=== PATIENT | female | born 1945 | race African-American/Black ===

== ENCOUNTER 2017-07-19 14:02 | Inpatient (IN) ==
[2017-07-19] MEDS ORDERED: ACETAMINOPHEN 325 MG TABLET PO PRN (14:15)
[2017-07-19] MEDS ORDERED: ONDANSETRON 4 MG/2 ML VIAL IV PRN (14:15)
[2017-07-19 15:50] LABS: Basophils % 0.2 % (0.0-0.8); Eosinophils # 0.2 10*3/uL (0.0-0.87); Hematocrit 36.5 VOL% (35.7-47.0); Hemoglobin 11.7 GM/DL (12.0-16.0); Immature Granulocytes % 0.2 %; Immature Granulocytes Absolute 0.01 #; Lymphocytes # 1.6 10*3/uL (1.4-4.0); Lymphocytes % 38.5 % (21.3-54.2); Mean Corpuscular HGB Conc 32.1 GM/DL (32-36); Mean Corpuscular Hemoglobin 26 PG (27-34); Mean Corpuscular Volume 81.3 FL (87-102); Mean Platelet Volume 10.8 FL (9.6-12.0); Monocytes # 0.3 10*3/uL (0.11-0.8); Monocytes % 6.9 % (1.7-12.7); Neutrophils % 50.2 % (38.7-73.9); Platelet Count 195 T/CUMM (130-400); Red Blood Count 4.49 MC/CUMM (3.8-5.5); Red Cell Distribution Width 15.4 % (9.3-17.3)
[2017-07-19 15:59] LABS: PT Patient Result 10.5 SECS
[2017-07-19 16:30] LABS: Folate 16.3 NG/ML (5.4-24.0)
[2017-07-19 16:31] LABS: Albumin 3.4 G/DL (3.4-5.0); Bilirubin,Total 0.4 MG/DL (0.2-1.0); Calcium 8.9 MG/DL (8.5-10.1); Osmolality,Calculated 286.1 MOS/KG (273-304); Total Protein 6.8 G/DL (6.4-8.3)
[2017-07-19] MEDS: CLOPIDOGREL 75 MG TABLET PO SCH (18:39)
[2017-07-19] MEDS: DOCUSATE SODIUM 100 MG CAPSULE PO SCH (21:48)
[2017-07-19] MEDS: ENOXAPARIN 40 MG/0.4 ML SYRINGE SUBCUT SCH (21:48)
[2017-07-19] MEDS: SODIUM CHLORIDE 0.45% 1,000 ML IV SCH (23:19)
[2017-07-20 05:48] LABS: Risk Ratio 3.84; VLDL CHOLESTEROL 19.2 MG/DL
[2017-07-20] MEDS ORDERED: CLOPIDOGREL 75 MG TABLET PO SCH (09:00)
[2017-07-20] MEDS: LOSARTAN 50 MG TABLET PO SCH (09:04)
[2017-07-20] MEDS: FUROSEMIDE 20 MG TABLET PO SCH (09:04)
[2017-07-20] MEDS: CLOPIDOGREL 75 MG TABLET PO SCH (09:04)
[2017-07-20] MEDS: DOCUSATE SODIUM 100 MG CAPSULE PO SCH ×2 (09:05→20:21)
[2017-07-20] MEDS: SIMVASTATIN 20 MG TABLET PO SCH (09:05)
[2017-07-20] MEDS: PANTOPRAZOLE 40 MG TABLET PO SCH (09:05)
[2017-07-20] MEDS: SODIUM CHLORIDE 0.45% 1,000 ML IV SCH (11:21)
[2017-07-20] MEDS: ENOXAPARIN 40 MG/0.4 ML SYRINGE SUBCUT SCH (20:21)
[2017-07-21] MEDS: SODIUM CHLORIDE 0.45% 1,000 ML IV SCH (01:58)
[2017-07-21 06:01] LABS: Calcium 8.9 MG/DL (8.5-10.1); Osmolality,Calculated 284.1 MOS/KG (273-304); Potassium 4.3 MMOL/L (3.5-5.1)
[2017-07-21] MEDS: DOCUSATE SODIUM 100 MG CAPSULE PO SCH ×2 (08:59→20:17)
[2017-07-21] MEDS: CLOPIDOGREL 75 MG TABLET PO SCH (08:59)
[2017-07-21] MEDS: PANTOPRAZOLE 40 MG TABLET PO SCH (09:00)
[2017-07-21] MEDS: LOSARTAN 50 MG TABLET PO SCH (09:00)
[2017-07-21] MEDS: SIMVASTATIN 20 MG TABLET PO SCH (09:00)
[2017-07-21] MEDS: FUROSEMIDE 20 MG TABLET PO SCH (09:00)
[2017-07-21] MEDS: ENOXAPARIN 40 MG/0.4 ML SYRINGE SUBCUT SCH (20:18)
[2017-07-22] MEDS: SODIUM CHLORIDE 0.45% 1,000 ML IV SCH ×2 (00:18→17:43)
[2017-07-22] MEDS: DOCUSATE SODIUM 100 MG CAPSULE PO SCH ×2 (08:32→21:22)
[2017-07-22] MEDS: LOSARTAN 50 MG TABLET PO SCH (08:32)
[2017-07-22] MEDS: FUROSEMIDE 20 MG TABLET PO SCH (08:32)
[2017-07-22] MEDS: SIMVASTATIN 20 MG TABLET PO SCH (08:32)
[2017-07-22] MEDS: CLOPIDOGREL 75 MG TABLET PO SCH (08:32)
[2017-07-22] MEDS: PANTOPRAZOLE 40 MG TABLET PO SCH (08:32)
[2017-07-22 09:54] LABS: Apearance,Urine CLEAR (Clear); Bacteria,Urine Occasional /HPF (Few); Bilirubin,Urine Negative (Negative); Blood, Urine Negative (Negative); Glucose,Urine (UA) Negative (Negative); Ketones,Urine Negative (Negative); Mucus,Urine Occasional /LPF (Occasional); Nitrite,Urine Negative (Negative); Protein,Urine Negative; RBC,Urine <1 /HPF (0-4); Squamous Epithelial Cell,Urine Occasional /HPF (0-10); Urine Color Straw (Yellow); Urine Specific Gravity 1.008 (1.001-1.035); Urine Urobilinogen < 2.0 EU/DL (0.2-1.0); WBC,Urine 1 /HPF (0-6)
[2017-07-22] MEDS: ENOXAPARIN 40 MG/0.4 ML SYRINGE SUBCUT SCH (21:22)
[2017-07-23 05:30] LABS: Basophils % 0.3 % (0.0-0.8); Eosinophils # 0.2 10*3/uL (0.0-0.87); Eosinophils % 4.6 % (0.00-10.9); Hematocrit 34.7 VOL% (35.7-47.0); Hemoglobin 10.6 GM/DL (12.0-16.0); Immature Granulocytes % 0.3 %; Immature Granulocytes Absolute 0.01 #; Lymphocytes # 1.9 10*3/uL (1.4-4.0); Mean Corpuscular HGB Conc 30.5 GM/DL (32-36); Mean Corpuscular Hemoglobin 25 PG (27-34); Mean Corpuscular Volume 82.6 FL (87-102); Mean Platelet Volume 11.5 FL (9.6-12.0); Monocytes # 0.3 10*3/uL (0.11-0.8); Monocytes % 9.5 % (1.7-12.7); Neutrophils # 1.1 10*3/uL (1.4-7.4); Neutrophils % 31.3 % (38.7-73.9); Platelet Count 188 T/CUMM (130-400); Red Cell Distribution Width 15.1 % (9.3-17.3); White Blood Count 3.5 T/CUMM (4-12)
[2017-07-23 06:02] LABS: Calcium 8.5 MG/DL (8.5-10.1); Osmolality,Calculated 283.1 MOS/KG (273-304); Potassium 4.1 MMOL/L (3.5-5.1)
[2017-07-23 06:09] LABS: Atypical Lymphocytes Few; Eosinophils 9 % (0-10); Lymphocytes 52 % (20-55); Segmented Neutrophils 32 % (50-85); Total Cells Counted 100
[2017-07-23 06:10] LABS: Hypochromasia 1+; Microcytosis 1+; Ovalocytes Few
[2017-07-23 06:11] LABS: Platelet Estimate Adequate
[2017-07-23] MEDS: LOSARTAN 50 MG TABLET PO SCH (08:07)
[2017-07-23] MEDS: SIMVASTATIN 20 MG TABLET PO SCH (08:08)
[2017-07-23] MEDS: DOCUSATE SODIUM 100 MG CAPSULE PO SCH ×2 (08:08→20:10)
[2017-07-23] MEDS: FUROSEMIDE 20 MG TABLET PO SCH (08:08)
[2017-07-23] MEDS: CLOPIDOGREL 75 MG TABLET PO SCH (08:08)
[2017-07-23] MEDS: PANTOPRAZOLE 40 MG TABLET PO SCH (08:08)
[2017-07-24] MEDS: SIMVASTATIN 20 MG TABLET PO SCH (09:46)
[2017-07-24] MEDS: LOSARTAN 50 MG TABLET PO SCH (09:46)
[2017-07-24] MEDS: DOCUSATE SODIUM 100 MG CAPSULE PO SCH ×2 (09:46→20:49)
[2017-07-24] MEDS: CLOPIDOGREL 75 MG TABLET PO SCH (09:46)
[2017-07-24] MEDS: FUROSEMIDE 20 MG TABLET PO SCH (09:46)
[2017-07-24] MEDS: PANTOPRAZOLE 40 MG TABLET PO SCH (09:46)
[2017-07-25] MEDS: FUROSEMIDE 20 MG TABLET PO SCH (10:11)
[2017-07-25] MEDS: LOSARTAN 50 MG TABLET PO SCH (10:11)
[2017-07-25] MEDS: CLOPIDOGREL 75 MG TABLET PO SCH (10:11)
[2017-07-25] MEDS: SIMVASTATIN 20 MG TABLET PO SCH (10:11)
[2017-07-25] MEDS: DOCUSATE SODIUM 100 MG CAPSULE PO SCH ×2 (10:11→21:01)
[2017-07-25] MEDS: PANTOPRAZOLE 40 MG TABLET PO SCH (10:11)
[2017-07-25] MEDS ORDERED: cloNIDine 0.1 MG TABLET PO PRN (19:32)
[2017-07-25] MEDS ORDERED: TEMAZEPAM 7.5 MG CAPSULE PO SCH (21:00)
[2017-07-26] MEDS ORDERED: TUBERCULIN SKIN TEST 0.1 ML SYRINGE INTRADERM ONE (08:20)
[2017-07-26] MEDS ORDERED: SERTRALINE 50 MG TABLET PO SCH (09:00)
[2017-07-26] MEDS: PANTOPRAZOLE 40 MG TABLET PO SCH (10:05)
[2017-07-26] MEDS: FUROSEMIDE 20 MG TABLET PO SCH (10:05)
[2017-07-26] MEDS: DOCUSATE SODIUM 100 MG CAPSULE PO SCH (10:05)
[2017-07-26] MEDS: LOSARTAN 50 MG TABLET PO SCH (10:05)
[2017-07-26] MEDS: CLOPIDOGREL 75 MG TABLET PO SCH (10:05)
[2017-07-26] MEDS: SIMVASTATIN 20 MG TABLET PO SCH (10:06)
[2017-07-26 12:43] VITALS: BP 148/74
== END 2017-07-26 16:28 | disposition home health service (06) | DRG 65 ==
LOC: INTOOBSV 14:24 → N.4E 14:24
PROVIDERS: ADMIT Family Medicine; ATTEND Family Medicine

== ENCOUNTER 2021-11-23 19:00 | Inpatient (IN) ==
[2021-11-23] MEDS ORDERED: DIAZEPAM 10 MG/2 ML SYRINGE ONE (19:12)
[2021-11-23] MEDS ORDERED: LABETALOL 20 MG/4 ML SYRINGE IV ONE (19:19)
[2021-11-23] MEDS ORDERED: levETIRAcetam 500 MG/5 ML VIAL IV ONE (19:40)
[2021-11-23 19:49] LABS: Bilirubin,Urine Negative (Negative); Blood, Urine Negative (Negative); Glucose,Urine (UA) Negative (Negative); Ketones,Urine Negative (Negative); Nitrite,Urine Negative (Negative); Protein,Urine 100 mg/dL (Negative); Urine Appearance Clear (Clear); Urine Color Yellow (Yellow); Urine Urobilinogen 0.2 eU/dL (<2.0)
[2021-11-23 19:51] LABS: Mucus,Urine Occasional /LPF (Occasional); RBC,Urine 1 /HPF (0-4); Squamous Epithelial Cell,Urine Occasional /HPF (0-10)
[2021-11-23 19:59] LABS: PT Patient Result 10.9 SECS (10.1-12.1)
[2021-11-23 20:07] LABS: Basophils % 0.3 % (0.0-0.8); Eosinophils # 0.1 10*3/uL (0.0-0.87); Eosinophils % 1.3 % (0.00-10.9); Hemoglobin 11.4 GM/DL (12.0-16.0); Immature Granulocytes % 0.5 %; Immature Granulocytes Absolute 0.03 #; Lymphocytes # 1.8 10*3/uL (1.4-4.0); Mean Platelet Volume 12.3 FL (9.6-12.0); Monocytes # 0.7 10*3/uL (0.11-0.8); Monocytes % 10.9 % (1.7-12.7); Platelet Count 178 T/CUMM (130-400); Red Blood Count 4.37 MC/CUMM (3.8-5.5); Red Cell Distribution Width 15.3 % (9.3-17.3); White Blood Count 6.1 T/CUMM (4-12)
[2021-11-23 20:09] LABS: Arterial Base Excess iSTAT -2 MMOL/L (-2.5-2.5); Arterial Bicarbonate iSTAT 24.1 MMOL/L (20-26); Arterial O2 Saturation iSTAT 100 % (95-100); Arterial PCO2 iSTAT 48 MM HG (35-48); Arterial PO2 iSTAT 429 MM HG (80-95); Arterial Total CO2 iSTAT 26 MMO/L (23-27); Arterial pH iSTAT 7.314 (7.35-7.45)
[2021-11-23 20:13] LABS: Alanine Aminotransferase 15 U/L (13-56); Albumin 3.7 G/DL (3.4-5.0); Alkaline Phosphatase 87 U/L (45-117); Aspartate Amino Transferase 13 U/L (0-37); Blood Urea Nitrogen 29 MG/DL (7-18); Calcium 9.5 MG/DL (8.5-10.1); Carbon Dioxide 18 MMOL/L (21-32); Chloride 107 MMOL/L (98-107); Glucose 118 MG/DL (74-106); Osmolality,Calculated 283.5 MOS/KG (273-304); Sodium 139 MMOL/L (136-145); Total Protein 7.3 G/DL (6.4-8.2)
[2021-11-23 20:24] LABS: Barbiturates Screen,Urine Negative (Negative); Benzodiazepines Screen,Urine Negative (Negative); Cannabinoid Screen,Urine Negative (Negative); Opiate Screen,Urine Negative (Negative); Phencyclidine Screen,Urine Negative (Negative)
[2021-11-23] MEDS ORDERED: LACTATED RINGERS 500 ML IV ONE (20:45)
[2021-11-23] MEDS ORDERED: SODIUM BICARBONATE 50 MEQ/50 ML VIAL IV STA (20:46)
[2021-11-23] MEDS ORDERED: DIAZEPAM 10 MG/2 ML SYRINGE IV STA (21:16)
[2021-11-23] MEDS ORDERED: ETOMIDATE 20 MG/10 ML VIAL IV ONE (22:01)
[2021-11-23] MEDS ORDERED: ROCURONIUM 100 MG/10 ML VIAL IV ONE (22:01)
[2021-11-23] MEDS ORDERED: ROCURONIUM 100 MG/10 ML VIAL IV STA (22:06)
[2021-11-23] MEDS ORDERED: ETOMIDATE 20 MG/10 ML VIAL IV STA (22:06)
[2021-11-23 22:26] LABS: Arterial Base Excess iSTAT 3 MMOL/L (-2.5-2.5); Arterial Bicarbonate iSTAT 27.7 MMOL/L (20-26); Arterial O2 Saturation iSTAT 100 % (95-100); Arterial PCO2 iSTAT 41 MM HG (35-48); Arterial PO2 iSTAT 303 MM HG (80-95); Arterial Total CO2 iSTAT 29 MMO/L (23-27); Arterial pH iSTAT 7.437 (7.35-7.45)
[2021-11-23] MEDS ORDERED: LABETALOL 20 MG/4 ML SYRINGE IV STA (23:32)
[2021-11-24] MEDS ORDERED: ALBUTEROL/IPRATROPIUM 3 ML NEB RESP TX PRN (00:26)
[2021-11-24] MEDS ORDERED: ONDANSETRON 4 MG/2 ML VIAL IV PRN (00:26)
[2021-11-24] MEDS ORDERED: LABETALOL 20 MG/4 ML SYRINGE IV PRN (00:26)
[2021-11-24] MEDS ORDERED: ALBUTEROL 2.5 MG/3 ML NEB RESP TX PRN (00:26)
[2021-11-24] MEDS ORDERED: MIDAZOLAM 100 MG in SODIUM CHLORIDE 0.9% 80 ML IV PRN (00:31)
[2021-11-24] MEDS ORDERED: DIAZEPAM 10 MG/2 ML SYRINGE IV PRN (00:42)
[2021-11-24] MEDS ORDERED: DIAZEPAM 10 MG/2 ML SYRINGE IV ONE (01:00)
[2021-11-24] MEDS: PANTOPRAZOLE 40 MG VIAL IV SCH (01:43)
[2021-11-24] MEDS: SODIUM CHLORIDE 0.9% 1,000 ML IV SCH ×3 (01:43→17:20)
[2021-11-24] MEDS: HEPARIN 5,000 UNIT/1 ML VIAL SUBCUT SCH ×3 (01:49→17:20)
[2021-11-24 03:56] LABS: Basophils % 0.2 % (0.0-0.8); Eosinophils % 0.4 % (0.00-10.9); Hematocrit 34.3 VOL% (35.7-47.0); Hemoglobin 10.7 GM/DL (12.0-16.0); Immature Granulocytes % 0.4 %; Immature Granulocytes Absolute 0.02 #; Lymphocytes # 0.8 10*3/uL (1.4-4.0); Lymphocytes % 14.1 % (21.3-54.2); Mean Corpuscular HGB Conc 31.2 GM/DL (32-36); Mean Corpuscular Volume 84.9 FL (87-102); Mean Platelet Volume 10.5 FL (9.6-12.0); Monocytes # 0.5 10*3/uL (0.11-0.8); Monocytes % 9.5 % (1.7-12.7); Neutrophils % 75.4 % (38.7-73.9); Platelet Count 145 T/CUMM (130-400); Red Blood Count 4.04 MC/CUMM (3.8-5.5); Red Cell Distribution Width 15.3 % (9.3-17.3); White Blood Count 5.5 T/CUMM (4-12)
[2021-11-24 04:14] LABS: Ammonia < 10 UMOL/L (11-32)
[2021-11-24 04:18] LABS: Lactic Acid 1.5 MMOL/L (0.4-2.0)
[2021-11-24 04:24] LABS: Calcium 9.3 MG/DL (8.5-10.1); Osmolality,Calculated 286.1 MOS/KG (273-304); Potassium 4.5 MMOL/L (3.5-5.1); Risk Ratio 2.34; Thyroid Stimulating Hormone 1.09 uIU/ml (0.358-3.74); VLDL Cholesterol 20.8 MG/DL
[2021-11-24 04:26] LABS: Arterial Base Excess iSTAT 3 MMOL/L (-2.5-2.5); Arterial Bicarbonate iSTAT 27.2 MMOL/L (20-26); Arterial O2 Saturation iSTAT 100 % (95-100); Arterial PCO2 iSTAT 40 MM HG (35-48); Arterial PO2 iSTAT 182 MM HG (80-95); Arterial Total CO2 iSTAT 28 MMO/L (23-27)
[2021-11-24] MEDS: ASPIRIN 325 MG TABLET PO SCH (09:05)
[2021-11-24] MEDS: SERTRALINE 50 MG TABLET PO SCH (09:05)
[2021-11-24] MEDS: CLOPIDOGREL 75 MG TABLET PO SCH (13:15)
[2021-11-24] MEDS ORDERED: ALUMINUM/MAGNES/SIMETH MAX STR 30 ML UDCUP PO PRN (18:05)
[2021-11-24] MEDS: ATORVASTATIN 40 MG TABLET PO SCH (20:23)
[2021-11-25] MEDS: PANTOPRAZOLE 40 MG VIAL IV SCH (00:01)
[2021-11-25] MEDS: HEPARIN 5,000 UNIT/1 ML VIAL SUBCUT SCH (00:01)
[2021-11-25] MEDS: SODIUM CHLORIDE 0.9% 1,000 ML IV SCH (01:54)
[2021-11-25 04:45] LABS: Arterial Base Excess iSTAT 2 MMOL/L (-2.5-2.5); Arterial Bicarbonate iSTAT 27.5 MMOL/L (20-26); Arterial O2 Saturation iSTAT 98 % (95-100); Arterial PCO2 iSTAT 47 MM HG (35-48); Arterial PO2 iSTAT 106 MM HG (80-95); Arterial Total CO2 iSTAT 29 MMO/L (23-27); Arterial pH iSTAT 7.376 (7.35-7.45)
[2021-11-25 06:09] LABS: Basophils % 0.5 % (0.0-0.8); Eosinophils # 0.1 10*3/uL (0.0-0.87); Eosinophils % 2.1 % (0.00-10.9); Hematocrit 38.8 VOL% (35.7-47.0); Hemoglobin 11.7 GM/DL (12.0-16.0); Immature Granulocytes % 0.3 %; Immature Granulocytes Absolute 0.02 #; Lymphocytes # 0.8 10*3/uL (1.4-4.0); Lymphocytes % 14.1 % (21.3-54.2); Mean Corpuscular HGB Conc 30.2 GM/DL (32-36); Mean Corpuscular Volume 86.6 FL (87-102); Mean Platelet Volume 11.5 FL (9.6-12.0); Monocytes # 0.8 10*3/uL (0.11-0.8); Monocytes % 13.7 % (1.7-12.7); Neutrophils % 69.3 % (38.7-73.9); Platelet Count 104 T/CUMM (130-400); Red Blood Count 4.48 MC/CUMM (3.8-5.5); Red Cell Distribution Width 15.5 % (9.3-17.3); White Blood Count 5.8 T/CUMM (4-12)
[2021-11-25 06:26] LABS: Albumin 2.8 G/DL (3.4-5.0); Bilirubin,Total 0.7 MG/DL (0.20-1.00); Osmolality,Calculated 280.3 MOS/KG (273-304); Total Protein 5.9 G/DL (6.4-8.2)
[2021-11-25] MEDS: DEXTROSE 5% NACL 0.45% 1,000 ML IV SCH (08:10)
[2021-11-25] MEDS: CLOPIDOGREL 75 MG TABLET PO SCH (09:23)
[2021-11-25] MEDS: ASPIRIN 325 MG TABLET PO SCH (09:23)
[2021-11-25] MEDS: SERTRALINE 50 MG TABLET PO SCH (09:23)
[2021-11-25] MEDS: ATORVASTATIN 40 MG TABLET PO SCH (21:55)
[2021-11-26] MEDS: DEXTROSE 5% NACL 0.45% 1,000 ML IV SCH ×3 (00:46→23:21)
[2021-11-26] MEDS: PANTOPRAZOLE 40 MG VIAL IV SCH (02:02)
[2021-11-26 06:25] LABS: Basophils % 0.3 % (0.0-0.8); Eosinophils # 0.2 10*3/uL (0.0-0.87); Eosinophils % 3.3 % (0.00-10.9); Hemoglobin 10.6 GM/DL (12.0-16.0); Immature Granulocytes % 0.3 %; Immature Granulocytes Absolute 0.02 #; Lymphocytes # 0.8 10*3/uL (1.4-4.0); Lymphocytes % 13.1 % (21.3-54.2); Mean Corpuscular HGB Conc 31.2 GM/DL (32-36); Mean Corpuscular Volume 84.4 FL (87-102); Mean Platelet Volume 11.2 FL (9.6-12.0); Monocytes # 0.6 10*3/uL (0.11-0.8); Monocytes % 10.3 % (1.7-12.7); Neutrophils % 72.7 % (38.7-73.9); Platelet Count 150 T/CUMM (130-400); Red Blood Count 4.03 MC/CUMM (3.8-5.5); Red Cell Distribution Width 15.1 % (9.3-17.3); White Blood Count 5.7 T/CUMM (4-12)
[2021-11-26 06:46] LABS: Albumin 2.6 G/DL (3.4-5.0); Bilirubin,Total 0.6 MG/DL (0.20-1.00); Calcium 8.8 MG/DL (8.5-10.1); Potassium 3.8 MMOL/L (3.5-5.1)
[2021-11-26] MEDS: SERTRALINE 50 MG TABLET PO SCH (08:50)
[2021-11-26] MEDS: CLOPIDOGREL 75 MG TABLET PO SCH (08:50)
[2021-11-26] MEDS: ASPIRIN 325 MG TABLET PO SCH (09:00)
[2021-11-26] MEDS: ENOXAPARIN 40 MG/0.4 ML SYRINGE SUBCUT SCH (12:15)
[2021-11-26] MEDS: ATORVASTATIN 40 MG TABLET PO SCH (20:51)
[2021-11-27] MEDS: PANTOPRAZOLE 40 MG VIAL IV SCH (06:18)
[2021-11-27 06:45] LABS: Basophils % 0.2 % (0.0-0.8); Eosinophils # 0.2 10*3/uL (0.0-0.87); Eosinophils % 3.1 % (0.00-10.9); Hematocrit 33.1 VOL% (35.7-47.0); Hemoglobin 10.1 GM/DL (12.0-16.0); Immature Granulocytes % 0.6 %; Immature Granulocytes Absolute 0.04 #; Lymphocytes # 0.8 10*3/uL (1.4-4.0); Lymphocytes % 12.8 % (21.3-54.2); Mean Corpuscular HGB Conc 30.5 GM/DL (32-36); Mean Corpuscular Volume 85.8 FL (87-102); Mean Platelet Volume 12.3 FL (9.6-12.0); Monocytes # 0.8 10*3/uL (0.11-0.8); Monocytes % 11.6 % (1.7-12.7); Neutrophils % 71.7 % (38.7-73.9); Platelet Count 135 T/CUMM (130-400); Red Blood Count 3.86 MC/CUMM (3.8-5.5); Red Cell Distribution Width 14.9 % (9.3-17.3); White Blood Count 6.5 T/CUMM (4-12)
[2021-11-27 06:59] LABS: Albumin 2.4 G/DL (3.4-5.0); Bilirubin,Total 0.5 MG/DL (0.20-1.00); Calcium 8.6 MG/DL (8.5-10.1); Osmolality,Calculated 275.8 MOS/KG (273-304); Potassium 3.9 MMOL/L (3.5-5.1); Total Protein 5.6 G/DL (6.4-8.2)
[2021-11-27 07:10] LABS: Platelet Estimate Normal
[2021-11-27] MEDS: SERTRALINE 50 MG TABLET PO SCH (08:40)
[2021-11-27] MEDS: CLOPIDOGREL 75 MG TABLET PO SCH (08:40)
[2021-11-27] MEDS: ASPIRIN 325 MG TABLET PO SCH (08:40)
[2021-11-27] MEDS: ENOXAPARIN 40 MG/0.4 ML SYRINGE SUBCUT SCH (10:28)
[2021-11-27] MEDS: DEXTROSE 5% NACL 0.45% 1,000 ML IV SCH (13:31)
[2021-11-27] MEDS: ATORVASTATIN 40 MG TABLET PO SCH (20:44)
[2021-11-28] MEDS: PANTOPRAZOLE 40 MG VIAL IV SCH ×2 (00:22→23:51)
[2021-11-28] MEDS: DEXTROSE 5% NACL 0.45% 1,000 ML IV SCH ×2 (01:50→15:00)
[2021-11-28 05:42] LABS: Basophils % 0.2 % (0.0-0.8); Eosinophils # 0.2 10*3/uL (0.0-0.87); Eosinophils % 3.2 % (0.00-10.9); Hematocrit 33.2 VOL% (35.7-47.0); Immature Granulocytes % 0.4 %; Immature Granulocytes Absolute 0.02 #; Lymphocytes # 0.9 10*3/uL (1.4-4.0); Lymphocytes % 15.8 % (21.3-54.2); Mean Corpuscular HGB Conc 30.1 GM/DL (32-36); Mean Corpuscular Volume 85.3 FL (87-102); Mean Platelet Volume 12.2 FL (9.6-12.0); Monocytes # 0.6 10*3/uL (0.11-0.8); Monocytes % 10.2 % (1.7-12.7); Neutrophils % 70.2 % (38.7-73.9); Platelet Count 156 T/CUMM (130-400); Red Blood Count 3.89 MC/CUMM (3.8-5.5); Red Cell Distribution Width 14.8 % (9.3-17.3); White Blood Count 5.4 T/CUMM (4-12)
[2021-11-28 06:02] LABS: Calcium 8.7 MG/DL (8.5-10.1); Osmolality,Calculated 274.7 MOS/KG (273-304)
[2021-11-28] MEDS: ENOXAPARIN 40 MG/0.4 ML SYRINGE SUBCUT SCH (10:00)
[2021-11-28] MEDS: ASPIRIN 325 MG TABLET PO SCH (12:55)
[2021-11-28] MEDS: SERTRALINE 50 MG TABLET PO SCH (12:56)
[2021-11-28] MEDS: CLOPIDOGREL 75 MG TABLET PO SCH (12:56)
[2021-11-28] MEDS: ATORVASTATIN 40 MG TABLET PO SCH (20:37)
[2021-11-29] MEDS: DEXTROSE 5% NACL 0.45% 1,000 ML IV SCH ×3 (04:00→15:59)
[2021-11-29 06:08] LABS: Basophils % 0.3 % (0.0-0.8); Eosinophils # 0.2 10*3/uL (0.0-0.87); Eosinophils % 5.2 % (0.00-10.9); Hematocrit 34.7 VOL% (35.7-47.0); Hemoglobin 10.5 GM/DL (12.0-16.0); Immature Granulocytes % 0.6 %; Immature Granulocytes Absolute 0.02 #; Lymphocytes # 0.9 10*3/uL (1.4-4.0); Lymphocytes % 25.4 % (21.3-54.2); Mean Corpuscular HGB Conc 30.3 GM/DL (32-36); Mean Corpuscular Volume 86.1 FL (87-102); Monocytes # 0.5 10*3/uL (0.11-0.8); Monocytes % 13.9 % (1.7-12.7); Neutrophils % 54.6 % (38.7-73.9); Platelet Count 141 T/CUMM (130-400); Red Blood Count 4.03 MC/CUMM (3.8-5.5); Red Cell Distribution Width 14.6 % (9.3-17.3); White Blood Count 3.5 T/CUMM (4-12)
[2021-11-29 06:26] LABS: Calcium 8.8 MG/DL (8.5-10.1); Osmolality,Calculated 275.5 MOS/KG (273-304); Potassium 3.9 MMOL/L (3.5-5.1)
[2021-11-29] MEDS: ASPIRIN 325 MG TABLET PO SCH (10:37)
[2021-11-29] MEDS: CLOPIDOGREL 75 MG TABLET PO SCH (10:37)
[2021-11-29] MEDS: SERTRALINE 50 MG TABLET PO SCH (10:37)
[2021-11-29] MEDS: ATORVASTATIN 40 MG TABLET PO SCH (20:36)
[2021-11-30] MEDS: PANTOPRAZOLE 40 MG VIAL IV SCH ×2 (00:20→23:40)
[2021-11-30] MEDS: DEXTROSE 5% NACL 0.45% 1,000 ML IV SCH ×2 (05:46→20:45)
[2021-11-30 06:47] LABS: Basophils % 0.5 % (0.0-0.8); Eosinophils # 0.2 10*3/uL (0.0-0.87); Eosinophils % 3.4 % (0.00-10.9); Hematocrit 37.8 VOL% (35.7-47.0); Hemoglobin 11.8 GM/DL (12.0-16.0); Immature Granulocytes % 0.7 %; Immature Granulocytes Absolute 0.03 #; Lymphocytes # 1.1 10*3/uL (1.4-4.0); Lymphocytes % 24.6 % (21.3-54.2); Mean Corpuscular HGB Conc 31.2 GM/DL (32-36); Mean Corpuscular Volume 84.2 FL (87-102); Mean Platelet Volume 12.5 FL (9.6-12.0); Monocytes # 0.7 10*3/uL (0.11-0.8); Neutrophils % 54.8 % (38.7-73.9); Platelet Count 137 T/CUMM (130-400); Red Blood Count 4.49 MC/CUMM (3.8-5.5); Red Cell Distribution Width 14.6 % (9.3-17.3); White Blood Count 4.4 T/CUMM (4-12)
[2021-11-30 06:52] LABS: Hypochromia Slight; Lymphocytes 33 % (20-55); Microcytosis Slight; Platelet Estimate Normal; Total Cells Counted 100
[2021-11-30 06:57] LABS: Calcium 8.7 MG/DL (8.5-10.1); Osmolality,Calculated 272.8 MOS/KG (273-304); Potassium 4.1 MMOL/L (3.5-5.1)
[2021-11-30] MEDS: SERTRALINE 50 MG TABLET PO SCH (08:52)
[2021-11-30] MEDS: ASPIRIN 325 MG TABLET PO SCH (08:52)
[2021-11-30] MEDS: CLOPIDOGREL 75 MG TABLET PO SCH (08:52)
[2021-11-30] MEDS: ATORVASTATIN 40 MG TABLET PO SCH (20:46)
[2021-12-01] MEDS: SERTRALINE 50 MG TABLET PO SCH (08:36)
[2021-12-01] MEDS: ASPIRIN 325 MG TABLET PO SCH (08:36)
[2021-12-01] MEDS: CLOPIDOGREL 75 MG TABLET PO SCH (08:36)
[2021-12-01] MEDS: DEXTROSE 5% NACL 0.45% 1,000 ML IV SCH (08:58)
[2021-12-01 13:00] VITALS: BP 115/54
== END 2021-12-01 15:46 | disposition swing bed (61) | DRG 57 ==
LOC: EDBD → EDUNIT# → N.ED 19:00 → N.ICU 23:44 → SUATTDRO 23:44 → N.ICU 11-24 00:25 → N.5E 11-30 15:16
PROVIDERS: ADMIT Family Medicine; ATTEND Family Medicine

== ENCOUNTER 2021-12-23 16:52 | Inpatient (IN) ==
[2021-12-23 17:50] LABS: Hematocrit 24.4 VOL% (35.7-47.0); Hemoglobin 7.8 GM/DL (12.0-16.0); Immature Granulocytes % 1.3 %; Immature Granulocytes Absolute 0.14 #; Lymphocytes # 0.5 10*3/uL (1.4-4.0); Mean Corpuscular Volume 81.6 FL (87-102); Mean Platelet Volume 12.2 FL (9.6-12.0); Monocytes % 8.5 % (1.7-12.7); Neutrophils % 86.2 % (38.7-73.9); Platelet Count 121 T/CUMM (130-400); Red Blood Count 2.99 MC/CUMM (3.8-5.5); Red Cell Distribution Width 14.4 % (9.3-17.3); White Blood Count 11.2 T/CUMM (4-12)
[2021-12-23 18:12] LABS: Bilirubin,Total 0.5 MG/DL (0.20-1.00); Calcium 8.3 MG/DL (8.5-10.1); Osmolality,Calculated 271.4 MOS/KG (273-304)
[2021-12-23 18:26] LABS: Glucose,Urine (UA) Negative (Negative); Ketones,Urine Negative (Negative); Nitrite,Urine Negative (Negative); Urine Appearance Clear (Clear); Urine Color Yellow (Yellow); Urine pH 5.5 (4.5-8.0)
[2021-12-23 18:27] LABS: Bilirubin,Urine Negative (Negative); Blood, Urine Trace mg/dL (Negative); Protein,Urine 100 mg/dL (Negative); Urine Specific Gravity 1.025 (1.001-1.035); Urine Urobilinogen 0.2 eU/dL (<2.0)
[2021-12-23 18:29] LABS: Amorphous Crystals,Urine Occasional /HPF (Few); Mucus,Urine Occasional /LPF (Occasional); Squamous Epithelial Cell,Urine Occasional /HPF (0-10)
[2021-12-23 19:39] LABS: Lymphocytes 4 % (20-55); Schistocytes Few; Total Cells Counted 100
[2021-12-23 19:40] LABS: Hypochromia Slight; Ovalocytes Few; Platelet Estimate Normal
[2021-12-23] MEDS ORDERED: PIPERACILLIN/TAZOBACTAM 3,375 MG in SODIUM CHLORIDE 0.9% 100 ML IV STA (19:54)
[2021-12-23] MEDS ORDERED: SODIUM CHLORIDE 0.9% 1,000 ML IV PRN (19:55)
[2021-12-23] MEDS ORDERED: ONDANSETRON 4 MG/2 ML VIAL IV PRN (19:55)
[2021-12-23] MEDS: LACTATED RINGERS 1,000 ML IV SCH (21:16)
[2021-12-23] MEDS: DOCUSATE SODIUM 100 MG CAPSULE PO SCH (23:54)
[2021-12-23] MEDS ORDERED: INFLUENZA VIRUS VACCINE 0.5 ML SYRINGE IM ONE (23:59)
[2021-12-24 00:15] LABS: Basophils % 0.2 % (0.0-0.8); Hematocrit 24.2 VOL% (35.7-47.0); Hemoglobin 7.7 GM/DL (12.0-16.0); Immature Granulocytes % 0.6 %; Immature Granulocytes Absolute 0.06 #; Lymphocytes # 0.6 10*3/uL (1.4-4.0); Lymphocytes % 5.2 % (21.3-54.2); Mean Corpuscular HGB Conc 31.8 GM/DL (32-36); Mean Corpuscular Volume 82.6 FL (87-102); Mean Platelet Volume 12.1 FL (9.6-12.0); Monocytes # 0.9 10*3/uL (0.11-0.8); Monocytes % 8.1 % (1.7-12.7); Neutrophils % 85.9 % (38.7-73.9); Platelet Count 135 T/CUMM (130-400); Red Blood Count 2.93 MC/CUMM (3.8-5.5); Red Cell Distribution Width 14.6 % (9.3-17.3); White Blood Count 10.9 T/CUMM (4-12)
[2021-12-24 00:25] LABS: Bilirubin,Total 0.5 MG/DL (0.20-1.00); Calcium 8.5 MG/DL (8.5-10.1); Osmolality,Calculated 275.1 MOS/KG (273-304); Potassium 3.9 MMOL/L (3.5-5.1); Total Protein 5.7 G/DL (6.4-8.2)
[2021-12-24 01:00] LABS: Lymphocytes 9 % (20-55); Myelocytes 1 %; Platelet Estimate Normal; Total Cells Counted 100
[2021-12-24] MEDS: PIPERACILLIN/TAZOBACTAM 3,375 MG in SODIUM CHLORIDE 0.9% 100 ML IV SCH ×3 (03:24→20:16)
[2021-12-24] MEDS: LACTATED RINGERS 1,000 ML IV SCH ×2 (05:08→18:51)
[2021-12-24] MEDS ORDERED: ALBUTEROL 2.5 MG/3 ML NEB RESP TX SCH (07:00)
[2021-12-24] MEDS ORDERED: MAGNESIUM HYDROXIDE SUSP 30 ML UDCUP PO PRN (07:00)
[2021-12-24] MEDS ORDERED: ACETAMINOPHEN 650 MG SUPP RECTAL PRN (07:00)
[2021-12-24] MEDS ORDERED: ACETAMINOPHEN 325 MG TABLET PO PRN (07:00)
[2021-12-24] MEDS ORDERED: BISACODYL 10 MG SUPP RECTAL PRN (07:00)
[2021-12-24] MEDS ORDERED: BISACODYL 5 MG TABLET PO PRN (07:00)
[2021-12-24] MEDS ORDERED: ZALEPLON 5 MG CAPSULE PO PRN (07:00)
[2021-12-24] MEDS ORDERED: GLUCAGON HCL 1 MG SUBCUT PRN (07:00)
[2021-12-24] MEDS ORDERED: ALUMINUM/MAGNES/SIMETH MAX STR 30 ML UDCUP PO PRN (07:00)
[2021-12-24] MEDS ORDERED: guaiFENesin 200 MG/10 ML UDCUP PO PRN (07:00)
[2021-12-24] MEDS ORDERED: GLUCAGON 1 MG VIAL IM PRN (07:12)
[2021-12-24] MEDS: ALBUTEROL/IPRATROPIUM 3 ML NEB RESP TX SCH ×3 (07:28→21:25)
[2021-12-24] MEDS ORDERED: ALBUTEROL 2.5 MG/3 ML NEB RESP TX PRN (07:32)
[2021-12-24] MEDS: PANTOPRAZOLE 40 MG TABLET PO SCH (10:40)
[2021-12-24] MEDS: SERTRALINE 50 MG TABLET PO SCH (10:41)
[2021-12-24] MEDS: levETIRAcetam 500 MG TABLET PO SCH ×2 (10:41→21:54)
[2021-12-24] MEDS: DOCUSATE SODIUM 100 MG CAPSULE PO SCH ×2 (10:41→21:54)
[2021-12-24] MEDS: CLOPIDOGREL 75 MG TABLET PO SCH (10:41)
[2021-12-24] MEDS: ASPIRIN EC 81 MG TABLET PO SCH (10:41)
[2021-12-24] MEDS: POTASSIUM CHLORIDE 10 MEQ TABLET PO SCH (10:41)
[2021-12-24] MEDS: LOSARTAN 25 MG TABLET PO SCH (21:54)
[2021-12-24] MEDS: ATORVASTATIN 20 MG TABLET PO SCH (21:54)
[2021-12-25] MEDS: LACTATED RINGERS 1,000 ML IV SCH ×3 (02:47→23:12)
[2021-12-25 04:42] LABS: Eosinophils % 0.5 % (0.00-10.9); Hematocrit 23.2 VOL% (35.7-47.0); Hemoglobin 7.4 GM/DL (12.0-16.0); Immature Granulocytes % 0.4 %; Immature Granulocytes Absolute 0.03 #; Lymphocytes # 0.7 10*3/uL (1.4-4.0); Lymphocytes % 8.8 % (21.3-54.2); Mean Corpuscular HGB Conc 31.9 GM/DL (32-36); Mean Corpuscular Volume 81.1 FL (87-102); Mean Platelet Volume 12.3 FL (9.6-12.0); Monocytes # 0.5 10*3/uL (0.11-0.8); Monocytes % 6.2 % (1.7-12.7); Neutrophils % 84.1 % (38.7-73.9); Platelet Count 121 T/CUMM (130-400); Red Blood Count 2.86 MC/CUMM (3.8-5.5); Red Cell Distribution Width 14.7 % (9.3-17.3); White Blood Count 8.2 T/CUMM (4-12)
[2021-12-25 05:02] LABS: Calcium 8.6 MG/DL (8.5-10.1); Osmolality,Calculated 279.7 MOS/KG (273-304); Potassium 3.9 MMOL/L (3.5-5.1)
[2021-12-25] MEDS: PIPERACILLIN/TAZOBACTAM 3,375 MG in SODIUM CHLORIDE 0.9% 100 ML IV SCH ×3 (05:04→20:07)
[2021-12-25 05:22] LABS: Ovalocytes Slight; Platelet Estimate Normal
[2021-12-25] MEDS: ALBUTEROL/IPRATROPIUM 3 ML NEB RESP TX SCH ×3 (07:20→19:58)
[2021-12-25] MEDS: VANCOMYCIN INJ 1,000 MG in SODIUM CHLORIDE 0.9% 250 ML IV SCH ×2 (11:08→23:15)
[2021-12-25] MEDS: POTASSIUM CHLORIDE 10 MEQ TABLET PO SCH (11:09)
[2021-12-25] MEDS: DEXAMETHASONE 4 MG/1 ML VIAL IV SCH ×2 (11:09→20:07)
[2021-12-25] MEDS: PANTOPRAZOLE 40 MG TABLET PO SCH (11:09)
[2021-12-25] MEDS: DOCUSATE SODIUM 100 MG CAPSULE PO SCH ×2 (11:09→20:07)
[2021-12-25] MEDS: SERTRALINE 50 MG TABLET PO SCH (11:09)
[2021-12-25] MEDS: CLOPIDOGREL 75 MG TABLET PO SCH (11:09)
[2021-12-25] MEDS: levETIRAcetam 500 MG TABLET PO SCH ×2 (11:10→20:08)
[2021-12-25] MEDS: ASPIRIN EC 81 MG TABLET PO SCH (11:10)
[2021-12-25] MEDS ORDERED: SODIUM CHLORIDE 0.9% 1,000 ML IV PRN (13:55)
[2021-12-25] MEDS: ACETAMINOPHEN 325 MG TABLET PO PRN (16:32)
[2021-12-25] MEDS: LOSARTAN 25 MG TABLET PO SCH (20:08)
[2021-12-25] MEDS: ATORVASTATIN 20 MG TABLET PO SCH (20:08)
[2021-12-25 22:57] LABS: Hematocrit 25.9 VOL% (35.7-47.0); Hemoglobin 8.1 GM/DL (12.0-16.0)
[2021-12-26] MEDS: PIPERACILLIN/TAZOBACTAM 3,375 MG in SODIUM CHLORIDE 0.9% 100 ML IV SCH ×3 (03:30→22:19)
[2021-12-26 07:00] LABS: Calcium 8.9 MG/DL (8.5-10.1); Osmolality,Calculated 279.7 MOS/KG (273-304); Potassium 4.2 MMOL/L (3.5-5.1)
[2021-12-26] MEDS: ALBUTEROL/IPRATROPIUM 3 ML NEB RESP TX SCH ×3 (07:50→19:30)
[2021-12-26] MEDS: POTASSIUM CHLORIDE 10 MEQ TABLET PO SCH (09:34)
[2021-12-26] MEDS: PANTOPRAZOLE 40 MG TABLET PO SCH (09:34)
[2021-12-26] MEDS: DEXAMETHASONE 4 MG/1 ML VIAL IV SCH ×2 (09:34→21:22)
[2021-12-26] MEDS: CLOPIDOGREL 75 MG TABLET PO SCH (09:34)
[2021-12-26] MEDS: metOLazone 5 MG TABLET PO SCH (09:35)
[2021-12-26] MEDS: SERTRALINE 50 MG TABLET PO SCH (09:35)
[2021-12-26] MEDS: ASPIRIN EC 81 MG TABLET PO SCH (09:35)
[2021-12-26] MEDS: levETIRAcetam 500 MG TABLET PO SCH ×2 (09:35→21:21)
[2021-12-26] MEDS: DOCUSATE SODIUM 100 MG CAPSULE PO SCH ×2 (09:35→21:22)
[2021-12-26] MEDS: FUROSEMIDE 20 MG TABLET PO SCH (09:35)
[2021-12-26] MEDS: LACTATED RINGERS 1,000 ML IV SCH ×2 (09:57→18:00)
[2021-12-26] MEDS: VANCOMYCIN INJ 1,000 MG in SODIUM CHLORIDE 0.9% 250 ML IV SCH ×2 (10:01→21:22)
[2021-12-26] MEDS: LOSARTAN 25 MG TABLET PO SCH (21:21)
[2021-12-26] MEDS: ATORVASTATIN 20 MG TABLET PO SCH (21:22)
[2021-12-26] MEDS: ACETAMINOPHEN 325 MG TABLET PO PRN (23:20)
[2021-12-27] MEDS: LACTATED RINGERS 1,000 ML IV SCH ×2 (05:11→15:10)
[2021-12-27] MEDS: PIPERACILLIN/TAZOBACTAM 3,375 MG in SODIUM CHLORIDE 0.9% 100 ML IV SCH (05:11)
[2021-12-27] MEDS: ALBUTEROL/IPRATROPIUM 3 ML NEB RESP TX SCH ×3 (07:20→20:51)
[2021-12-27] MEDS: PANTOPRAZOLE 40 MG TABLET PO SCH (09:10)
[2021-12-27] MEDS: POTASSIUM CHLORIDE 10 MEQ TABLET PO SCH (09:10)
[2021-12-27] MEDS: ASPIRIN EC 81 MG TABLET PO SCH (09:10)
[2021-12-27] MEDS: levETIRAcetam 500 MG TABLET PO SCH ×2 (09:10→21:03)
[2021-12-27] MEDS: DOCUSATE SODIUM 100 MG CAPSULE PO SCH ×2 (09:10→21:03)
[2021-12-27] MEDS: SERTRALINE 50 MG TABLET PO SCH (09:10)
[2021-12-27] MEDS: DEXAMETHASONE 4 MG/1 ML VIAL IV SCH ×2 (09:12→21:06)
[2021-12-27] MEDS: CLOPIDOGREL 75 MG TABLET PO SCH (09:55)
[2021-12-27] MEDS: OXACILLIN 2,000 MG in SODIUM CHLORIDE 0.9% 100 ML IV SCH ×4 (11:04→23:24)
[2021-12-27] MEDS: ATORVASTATIN 20 MG TABLET PO SCH (21:02)
[2021-12-27] MEDS: LOSARTAN 25 MG TABLET PO SCH (21:03)
[2021-12-28] MEDS: LACTATED RINGERS 1,000 ML IV SCH ×2 (03:04→14:03)
[2021-12-28] MEDS: OXACILLIN 2,000 MG in SODIUM CHLORIDE 0.9% 100 ML IV SCH ×5 (03:05→20:47)
[2021-12-28 05:37] LABS: Basophils % 0.1 % (0.0-0.8); Eosinophils # 0.2 10*3/uL (0.0-0.87); Eosinophils % 1.5 % (0.00-10.9); Hematocrit 30.5 VOL% (35.7-47.0); Hemoglobin 9.4 GM/DL (12.0-16.0); Immature Granulocytes % 1.8 %; Lymphocytes # 1.4 10*3/uL (1.4-4.0); Mean Corpuscular HGB Conc 30.8 GM/DL (32-36); Mean Corpuscular Volume 83.1 FL (87-102); Mean Platelet Volume 11.2 FL (9.6-12.0); Monocytes # 0.8 10*3/uL (0.11-0.8); Monocytes % 7.6 % (1.7-12.7); NRBC # 0.02 10*3/uL; Platelet Count 242 T/CUMM (130-400); Red Blood Count 3.67 MC/CUMM (3.8-5.5); Red Cell Distribution Width 15.1 % (9.3-17.3); White Blood Count 10.9 T/CUMM (4-12)
[2021-12-28 05:58] LABS: Calcium 8.7 MG/DL (8.5-10.1); Osmolality,Calculated 280.5 MOS/KG (273-304); Potassium 3.6 MMOL/L (3.5-5.1)
[2021-12-28] MEDS: ALBUTEROL/IPRATROPIUM 3 ML NEB RESP TX SCH ×2 (07:00→12:40)
[2021-12-28] MEDS: CLOPIDOGREL 75 MG TABLET PO SCH (09:00)
[2021-12-28] MEDS: DOCUSATE SODIUM 100 MG CAPSULE PO SCH ×2 (09:00→20:50)
[2021-12-28] MEDS: PANTOPRAZOLE 40 MG TABLET PO SCH (09:00)
[2021-12-28] MEDS: levETIRAcetam 500 MG TABLET PO SCH ×2 (09:01→20:50)
[2021-12-28] MEDS: ASPIRIN EC 81 MG TABLET PO SCH (09:01)
[2021-12-28] MEDS: FUROSEMIDE 20 MG TABLET PO SCH (09:01)
[2021-12-28] MEDS: DEXAMETHASONE 4 MG/1 ML VIAL IV SCH ×2 (09:01→20:49)
[2021-12-28] MEDS: SERTRALINE 50 MG TABLET PO SCH (09:02)
[2021-12-28] MEDS: POTASSIUM CHLORIDE 10 MEQ TABLET PO SCH (09:08)
[2021-12-28] MEDS: metOLazone 5 MG TABLET PO SCH (09:08)
[2021-12-28] MEDS: ACETAMINOPHEN 325 MG TABLET PO PRN (20:50)
[2021-12-28] MEDS: ATORVASTATIN 20 MG TABLET PO SCH (20:50)
[2021-12-28] MEDS: LOSARTAN 25 MG TABLET PO SCH (20:50)
[2021-12-29] MEDS: LACTATED RINGERS 1,000 ML IV SCH ×3 (02:06→23:45)
[2021-12-29] MEDS: OXACILLIN 2,000 MG in SODIUM CHLORIDE 0.9% 100 ML IV SCH ×6 (02:07→20:05)
[2021-12-29] MEDS: ALBUTEROL/IPRATROPIUM 3 ML NEB RESP TX SCH ×4 (07:29→19:25)
[2021-12-29 09:12] LABS: Basophils % 0.2 % (0.0-0.8); Eosinophils # 0.1 10*3/uL (0.0-0.87); Eosinophils % 0.7 % (0.00-10.9); Hematocrit 31.9 VOL% (35.7-47.0); Immature Granulocytes % 2.6 %; Immature Granulocytes Absolute 0.29 #; Lymphocytes # 1.9 10*3/uL (1.4-4.0); Lymphocytes % 16.9 % (21.3-54.2); Mean Corpuscular HGB Conc 31.3 GM/DL (32-36); Mean Corpuscular Volume 83.7 FL (87-102); Mean Platelet Volume 11.3 FL (9.6-12.0); Monocytes # 0.6 10*3/uL (0.11-0.8); Monocytes % 4.9 % (1.7-12.7); Neutrophils % 74.7 % (38.7-73.9); Platelet Count 306 T/CUMM (130-400); Red Blood Count 3.81 MC/CUMM (3.8-5.5); Red Cell Distribution Width 15.6 % (9.3-17.3); White Blood Count 11.3 T/CUMM (4-12)
[2021-12-29] MEDS: DEXAMETHASONE 4 MG/1 ML VIAL IV SCH ×2 (09:16→20:05)
[2021-12-29] MEDS: POTASSIUM CHLORIDE 10 MEQ TABLET PO SCH (09:18)
[2021-12-29] MEDS: DOCUSATE SODIUM 100 MG CAPSULE PO SCH ×2 (09:18→20:05)
[2021-12-29] MEDS: CLOPIDOGREL 75 MG TABLET PO SCH (09:18)
[2021-12-29] MEDS: SERTRALINE 50 MG TABLET PO SCH (09:18)
[2021-12-29] MEDS: levETIRAcetam 500 MG TABLET PO SCH ×2 (09:18→20:05)
[2021-12-29] MEDS: PANTOPRAZOLE 40 MG TABLET PO SCH (09:18)
[2021-12-29] MEDS: ASPIRIN EC 81 MG TABLET PO SCH (09:18)
[2021-12-29 09:25] LABS: Calcium 8.6 MG/DL (8.5-10.1); Osmolality,Calculated 280.5 MOS/KG (273-304); Potassium 4.5 MMOL/L (3.5-5.1)
[2021-12-29] MEDS: ATORVASTATIN 20 MG TABLET PO SCH (20:05)
[2021-12-29] MEDS: LOSARTAN 25 MG TABLET PO SCH (20:05)
[2021-12-30] MEDS: OXACILLIN 2,000 MG in SODIUM CHLORIDE 0.9% 100 ML IV SCH ×6 (00:25→20:40)
[2021-12-30] MEDS: ALBUTEROL/IPRATROPIUM 3 ML NEB RESP TX SCH ×3 (07:23→21:35)
[2021-12-30] MEDS: DEXAMETHASONE 4 MG/1 ML VIAL IV SCH ×2 (08:12→20:40)
[2021-12-30] MEDS: PANTOPRAZOLE 40 MG TABLET PO SCH (08:13)
[2021-12-30] MEDS: metOLazone 5 MG TABLET PO SCH (08:13)
[2021-12-30] MEDS: ASPIRIN EC 81 MG TABLET PO SCH (08:13)
[2021-12-30] MEDS: POTASSIUM CHLORIDE 10 MEQ TABLET PO SCH (08:13)
[2021-12-30] MEDS: DOCUSATE SODIUM 100 MG CAPSULE PO SCH ×2 (08:13→20:40)
[2021-12-30] MEDS: CLOPIDOGREL 75 MG TABLET PO SCH (08:13)
[2021-12-30] MEDS: FUROSEMIDE 20 MG TABLET PO SCH (08:14)
[2021-12-30] MEDS: SERTRALINE 50 MG TABLET PO SCH (08:14)
[2021-12-30] MEDS: levETIRAcetam 500 MG TABLET PO SCH ×2 (08:14→20:40)
[2021-12-30] MEDS: LOSARTAN 25 MG TABLET PO SCH (20:40)
[2021-12-30] MEDS: ATORVASTATIN 20 MG TABLET PO SCH (20:40)
[2021-12-30] MEDS: LACTATED RINGERS 1,000 ML IV SCH (22:00)
[2021-12-31] MEDS: OXACILLIN 2,000 MG in SODIUM CHLORIDE 0.9% 100 ML IV SCH ×6 (00:45→20:15)
[2021-12-31 05:42] LABS: Basophils % 0.1 % (0.0-0.8); Eosinophils # 0.1 10*3/uL (0.0-0.87); Eosinophils % 0.7 % (0.00-10.9); Hematocrit 30.6 VOL% (35.7-47.0); Hemoglobin 9.4 GM/DL (12.0-16.0); Immature Granulocytes % 4.8 %; Immature Granulocytes Absolute 0.33 #; Lymphocytes # 1.4 10*3/uL (1.4-4.0); Lymphocytes % 20.3 % (21.3-54.2); Mean Corpuscular HGB Conc 30.7 GM/DL (32-36); Mean Corpuscular Volume 84.1 FL (87-102); Mean Platelet Volume 10.6 FL (9.6-12.0); Monocytes # 0.3 10*3/uL (0.11-0.8); Neutrophils % 69.1 % (38.7-73.9); Platelet Count 381 T/CUMM (130-400); Red Blood Count 3.64 MC/CUMM (3.8-5.5); Red Cell Distribution Width 15.9 % (9.3-17.3); White Blood Count 6.9 T/CUMM (4-12)
[2021-12-31 05:58] LABS: Calcium 8.6 MG/DL (8.5-10.1); Osmolality,Calculated 280.5 MOS/KG (273-304); Potassium 4.3 MMOL/L (3.5-5.1)
[2021-12-31] MEDS: ALBUTEROL/IPRATROPIUM 3 ML NEB RESP TX SCH ×3 (07:16→19:50)
[2021-12-31] MEDS: DOCUSATE SODIUM 100 MG CAPSULE PO SCH ×2 (09:33→20:15)
[2021-12-31] MEDS: ASPIRIN EC 81 MG TABLET PO SCH (09:33)
[2021-12-31] MEDS: PANTOPRAZOLE 40 MG TABLET PO SCH (09:33)
[2021-12-31] MEDS: levETIRAcetam 500 MG TABLET PO SCH ×2 (09:33→20:15)
[2021-12-31] MEDS: CLOPIDOGREL 75 MG TABLET PO SCH (09:33)
[2021-12-31] MEDS: POTASSIUM CHLORIDE 10 MEQ TABLET PO SCH (09:33)
[2021-12-31] MEDS: ACETAMINOPHEN 325 MG TABLET PO PRN ×2 (09:34→18:45)
[2021-12-31] MEDS: SERTRALINE 50 MG TABLET PO SCH (09:34)
[2021-12-31] MEDS: DEXAMETHASONE 4 MG/1 ML VIAL IV SCH ×2 (10:02→20:15)
[2021-12-31] MEDS: LACTATED RINGERS 1,000 ML IV SCH (17:21)
[2021-12-31] MEDS: ATORVASTATIN 20 MG TABLET PO SCH (20:15)
[2021-12-31] MEDS: LOSARTAN 25 MG TABLET PO SCH (20:15)
[2022-01-01] MEDS: OXACILLIN 2,000 MG in SODIUM CHLORIDE 0.9% 100 ML IV SCH ×6 (00:15→21:02)
[2022-01-01 06:18] LABS: Albumin 1.9 G/DL (3.4-5.0); Bilirubin,Direct 0.17 MG/DL (0.0-0.20); Bilirubin,Indirect 0.3 MG/DL (0.0-1.0); Bilirubin,Total 0.5 MG/DL (0.20-1.00); Calcium 8.2 MG/DL (8.5-10.1); Osmolality,Calculated 280.5 MOS/KG (273-304); Potassium 3.8 MMOL/L (3.5-5.1); Total Protein 5.5 G/DL (6.4-8.2)
[2022-01-01 06:41] LABS: Basophils % 0.1 % (0.0-0.8); Eosinophils % 0.2 % (0.00-10.9); Hematocrit 26.4 VOL% (35.7-47.0); Hemoglobin 8.4 GM/DL (12.0-16.0); Immature Granulocytes % 1.1 %; Immature Granulocytes Absolute 0.21 #; Lymphocytes # 1.2 10*3/uL (1.4-4.0); Lymphocytes % 6.2 % (21.3-54.2); Mean Corpuscular HGB Conc 31.8 GM/DL (32-36); Mean Corpuscular Volume 83.8 FL (87-102); Mean Platelet Volume 10.5 FL (9.6-12.0); Monocytes # 0.4 10*3/uL (0.11-0.8); Neutrophils % 90.4 % (38.7-73.9); Platelet Count 337 T/CUMM (130-400); Red Blood Count 3.15 MC/CUMM (3.8-5.5); Red Cell Distribution Width 16.1 % (9.3-17.3); White Blood Count 19.3 T/CUMM (4-12)
[2022-01-01] MEDS: ALBUTEROL/IPRATROPIUM 3 ML NEB RESP TX SCH ×3 (07:20→19:00)
[2022-01-01] MEDS: POTASSIUM CHLORIDE 10 MEQ TABLET PO SCH (09:17)
[2022-01-01] MEDS: CLOPIDOGREL 75 MG TABLET PO SCH (09:18)
[2022-01-01] MEDS: SERTRALINE 50 MG TABLET PO SCH (09:18)
[2022-01-01] MEDS: PANTOPRAZOLE 40 MG TABLET PO SCH (09:18)
[2022-01-01] MEDS: DOCUSATE SODIUM 100 MG CAPSULE PO SCH ×2 (09:18→20:51)
[2022-01-01] MEDS: ASPIRIN EC 81 MG TABLET PO SCH (09:18)
[2022-01-01] MEDS: levETIRAcetam 500 MG TABLET PO SCH ×2 (09:18→20:51)
[2022-01-01] MEDS: DEXAMETHASONE 4 MG/1 ML VIAL IV SCH ×2 (09:19→20:51)
[2022-01-01] MEDS: LACTATED RINGERS 1,000 ML IV SCH (14:28)
[2022-01-01] MEDS: LOSARTAN 25 MG TABLET PO SCH (20:51)
[2022-01-01] MEDS: ATORVASTATIN 20 MG TABLET PO SCH (20:51)
[2022-01-02] MEDS: OXACILLIN 2,000 MG in SODIUM CHLORIDE 0.9% 100 ML IV SCH ×6 (00:49→20:00)
[2022-01-02 05:39] LABS: Basophils % 0.1 % (0.0-0.8); Eosinophils % 0.1 % (0.00-10.9); Hematocrit 26.5 VOL% (35.7-47.0); Hemoglobin 8.3 GM/DL (12.0-16.0); Immature Granulocytes % 1.3 %; Immature Granulocytes Absolute 0.21 #; Lymphocytes # 0.9 10*3/uL (1.4-4.0); Lymphocytes % 5.6 % (21.3-54.2); Mean Corpuscular HGB Conc 31.3 GM/DL (32-36); Mean Corpuscular Volume 83.1 FL (87-102); Mean Platelet Volume 10.7 FL (9.6-12.0); Monocytes # 0.5 10*3/uL (0.11-0.8); Neutrophils % 89.9 % (38.7-73.9); Platelet Count 385 T/CUMM (130-400); Red Blood Count 3.19 MC/CUMM (3.8-5.5); White Blood Count 15.9 T/CUMM (4-12)
[2022-01-02 06:02] LABS: Bilirubin,Total 0.4 MG/DL (0.20-1.00); Calcium 8.6 MG/DL (8.5-10.1); Osmolality,Calculated 282.4 MOS/KG (273-304); Potassium 3.9 MMOL/L (3.5-5.1)
[2022-01-02] MEDS: ALBUTEROL/IPRATROPIUM 3 ML NEB RESP TX SCH ×3 (07:00→19:08)
[2022-01-02] MEDS: DEXAMETHASONE 4 MG/1 ML VIAL IV SCH ×2 (08:52→20:00)
[2022-01-02] MEDS: LACTATED RINGERS 1,000 ML IV SCH (08:53)
[2022-01-02] MEDS: SERTRALINE 50 MG TABLET PO SCH (10:14)
[2022-01-02] MEDS: CLOPIDOGREL 75 MG TABLET PO SCH (10:14)
[2022-01-02] MEDS: ASPIRIN EC 81 MG TABLET PO SCH (10:14)
[2022-01-02] MEDS: DOCUSATE SODIUM 100 MG CAPSULE PO SCH ×2 (10:14→20:00)
[2022-01-02] MEDS: levETIRAcetam 500 MG TABLET PO SCH ×2 (10:14→20:00)
[2022-01-02] MEDS: POTASSIUM CHLORIDE 10 MEQ TABLET PO SCH (10:14)
[2022-01-02] MEDS: PANTOPRAZOLE 40 MG TABLET PO SCH (10:15)
[2022-01-02] MEDS: FUROSEMIDE 20 MG TABLET PO SCH (12:14)
[2022-01-02] MEDS: metOLazone 5 MG TABLET PO SCH (12:14)
[2022-01-02 13:09] LABS: Hyaline Casts,Urine 1 /LPF (0-3); Mucus,Urine Occasional /LPF (Occasional); RBC,Urine <1 /HPF (0-4)
[2022-01-02 13:10] LABS: Bilirubin,Urine Negative (Negative); Blood, Urine Negative (Negative); Glucose,Urine (UA) Negative (Negative); Ketones,Urine Negative (Negative); Nitrite,Urine Negative (Negative); Protein,Urine Negative (Negative); Urine Appearance Clear (Clear); Urine Color Yellow (Yellow); Urine Urobilinogen 0.2 eU/dL (<2.0)
[2022-01-02] MEDS ORDERED: TUBERCULIN SKIN TEST 0.1 ML SYRINGE INTRADERM ONE (17:00)
[2022-01-02] MEDS: ATORVASTATIN 20 MG TABLET PO SCH (20:00)
[2022-01-02] MEDS: LOSARTAN 25 MG TABLET PO SCH (20:00)
[2022-01-03] MEDS: OXACILLIN 2,000 MG in SODIUM CHLORIDE 0.9% 100 ML IV SCH ×2 (00:20→04:00)
[2022-01-03] MEDS: LACTATED RINGERS 1,000 ML IV SCH ×2 (02:45→16:05)
[2022-01-03] MEDS: ALBUTEROL/IPRATROPIUM 3 ML NEB RESP TX SCH ×3 (06:58→19:40)
[2022-01-03] MEDS: PANTOPRAZOLE 40 MG TABLET PO SCH (09:16)
[2022-01-03] MEDS: levETIRAcetam 500 MG TABLET PO SCH ×2 (09:16→21:52)
[2022-01-03] MEDS: DEXAMETHASONE 4 MG/1 ML VIAL IV SCH ×2 (09:16→21:52)
[2022-01-03] MEDS: CLOPIDOGREL 75 MG TABLET PO SCH (09:17)
[2022-01-03] MEDS: DOCUSATE SODIUM 100 MG CAPSULE PO SCH ×2 (09:17→21:51)
[2022-01-03] MEDS: ASPIRIN EC 81 MG TABLET PO SCH (09:17)
[2022-01-03] MEDS: POTASSIUM CHLORIDE 10 MEQ TABLET PO SCH (09:17)
[2022-01-03] MEDS: SERTRALINE 50 MG TABLET PO SCH (09:17)
[2022-01-03] MEDS: LOSARTAN 25 MG TABLET PO SCH (21:51)
[2022-01-04 07:13] LABS: Basophils % 0.2 % (0.0-0.8); Eosinophils # 0.1 10*3/uL (0.0-0.87); Eosinophils % 0.6 % (0.00-10.9); Hematocrit 26.9 VOL% (35.7-47.0); Hemoglobin 8.3 GM/DL (12.0-16.0); Immature Granulocytes % 0.9 %; Immature Granulocytes Absolute 0.09 #; Lymphocytes # 1.6 10*3/uL (1.4-4.0); Mean Corpuscular HGB Conc 30.9 GM/DL (32-36); Mean Platelet Volume 10.1 FL (9.6-12.0); Monocytes # 0.7 10*3/uL (0.11-0.8); Monocytes % 6.6 % (1.7-12.7); Neutrophils % 75.7 % (38.7-73.9); Platelet Count 361 T/CUMM (130-400); Red Blood Count 3.24 MC/CUMM (3.8-5.5); Red Cell Distribution Width 15.9 % (9.3-17.3); White Blood Count 10.1 T/CUMM (4-12)
[2022-01-04] MEDS: ALBUTEROL/IPRATROPIUM 3 ML NEB RESP TX SCH ×2 (07:36→13:39)
[2022-01-04 07:45] LABS: Calcium 8.7 MG/DL (8.5-10.1); Osmolality,Calculated 271.1 MOS/KG (273-304); Potassium 4.4 MMOL/L (3.5-5.1)
[2022-01-04] MEDS: FUROSEMIDE 20 MG TABLET PO SCH (08:26)
[2022-01-04] MEDS: DEXAMETHASONE 4 MG/1 ML VIAL IV SCH (08:26)
[2022-01-04] MEDS: CLOPIDOGREL 75 MG TABLET PO SCH (08:26)
[2022-01-04] MEDS: POTASSIUM CHLORIDE 10 MEQ TABLET PO SCH (08:26)
[2022-01-04] MEDS: PANTOPRAZOLE 40 MG TABLET PO SCH (08:26)
[2022-01-04] MEDS: metOLazone 5 MG TABLET PO SCH (08:26)
[2022-01-04] MEDS: levETIRAcetam 500 MG TABLET PO SCH (08:26)
[2022-01-04] MEDS: SERTRALINE 50 MG TABLET PO SCH (08:26)
[2022-01-04] MEDS: DOCUSATE SODIUM 100 MG CAPSULE PO SCH (08:26)
[2022-01-04] MEDS: ASPIRIN EC 81 MG TABLET PO SCH (08:27)
[2022-01-04] MEDS ORDERED: hydrALAZINE 10 MG TABLET PO ONE (08:28)
[2022-01-04] MEDS: LACTATED RINGERS 1,000 ML IV SCH (16:09)
[2022-01-04 16:10] VITALS: BP 112/71
[2022-01-04] MEDS ORDERED: LOSARTAN 50 MG TABLET PO SCH (21:00)
== END 2022-01-04 16:17 | DRG 871 ==
LOC: N.ED 16:52 → N.TELEN 19:55 → N.5E 12-25 16:52
PROVIDERS: ADMIT Family Medicine; ATTEND Family Medicine